=== PATIENT | male | born 1955 | race African-American/Black ===

== ENCOUNTER 2016-06-22 20:03 | Inpatient (IN) | payer MEDICAID ==
[~2016-06-22] VITALS: Ht 172.7 cm; Wt 74.8 kg
[2016-06-22 21:39] LABS: BASOPHILS % 1.1 % (0.0-2.0); CHLORIDE 100 mEq/L (98-107); EOSINOPHILS % 0.3 % (0.0-5.0); HEMATOCRIT. 40.5 % (42.0-52.0); HEMOGLOBIN. 13.8 g/dL (14.0-18.0); INDEX HEMOLYSI 1 (1-3); INDEX ICTERIC 1 (1-4); INDEX LIPEMIC 1 (1-3); LYMPHOCYTES % 27.5 % (20.0-50.0); MEAN CORPUSCULAR HEMOGLOBIN 29.5 pg (28.0-32.0); MEAN PLATELET VOLUME 7.3 fl (7.4-10.4); MONOCYTES % 7.4 % (2.0-8.0); NEUTROPHILS % 63.7 % (40.0-76.0); PLATELET 261 x1000/uL (130-400); RED BLOOD CELL COUNT 4.66 mill/uL (4.7-6.1); RED CELL DISTRIBUTION WIDTH 13.5 % (11.6-14.6); WHITE BLOOD COUNT 11.7 x1000/uL (4.5-11.0)
[2016-06-22 21:41] LABS: CALCIUM 9.4 mg/dL (8.5-10.1)
[2016-06-22 21:43] LABS: ANION GAP 16; CARBON DIOXIDE 26 mEq/L (21-32); ETHANOL BLOOD < 10 mg/dL; UREA NITROGEN BLOOD 59 mg/dL (7-21)
[2016-06-22 21:45] LABS: ACETAMINOPHEN < 2 ug/mL (10-30); ALANINE AMINOTRANSFERASE 42 IU/L (13-61); eGFR 28 mL/min (>60)
[2016-06-22] MEDS ORDERED: SODIUM CHLORIDE 0.9% 1,000 ML IV ONE (22:15)
[2016-06-22 22:52] LABS: CLARITY URINE CLEAR (CLEAR); COLOR URINE YELLOW (YELLOW); GLUCOSE URINE TRACE (NEGATIVE); KETONES URINE 1+ (NEGATIVE); LEUKOCYTE ESTERASE URINE NEGATIVE (NEGATIVE); NITRITE URINE NEGATIVE (NEGATIVE); OCCULT BLOOD URINE 3+ (NEGATIVE); PROTEIN URINE 1+ (NEGATIVE); SPECIFIC GRAVITY URINE 1.025 (1.005-1.030)
[2016-06-22 23:04] LABS: *AMPHETAMINES SCREEN URINE PRESUMTIVE POSITIVE (NEGATIVE); *BARBITURATES SCREEN URINE NEGATIVE (NEGATIVE); *BENZODIAZEPINES SCREEN URINE NEGATIVE (NEGATIVE); *COCAINE SCREEN URINE NEGATIVE (NEGATIVE); CANNABINOID URINE SCREEN NEGATIVE (NEGATIVE); ECSTASY MDMA SCREEN URINE CONF.TEST INDICATED (NEGATIVE); METHADONE URINE SCREEN NEGATIVE (NEGATIVE); OPIATES URINE SCREEN NEGATIVE (NEGATIVE); PHENCYCLIDINE URINE SCREEN NEGATIVE (NEGATIVE)
[2016-06-22 23:15] LABS: WBC URINE 0-2 /hpf (0-2)
[2016-06-22 23:16] LABS: BACTERIA URINE 3+; RBC URINE NONE SEEN /hpf (0-2); SQUAMOUS EPITHELIAL CELL URINE NONE SEEN /lpf (RARE/1+)
[2016-06-23 09:15] VITALS: BP 127/79
[2016-06-23 09:30] VITALS: BP 128/93
[2016-06-23] MEDS ORDERED: SODIUM CHLORIDE 0.9% 1,000 ML IV SCH (10:50)
[2016-06-23] MEDS ORDERED: DOCUSATE SODIUM 100MG CAPSULE PO PRN (11:00)
[2016-06-23] MEDS ORDERED: LORAZEPAM 2MG/ML CPJ IV PRN (11:00)
[2016-06-23] MEDS ORDERED: ACETAMINOPHEN 325MG TABLET PO PRN ×2 (11:00)
[2016-06-23] MEDS ORDERED: MAGNESIUM/ALUMINUM HYDROXIDE/SIMETHICONE 30ML UDC PO PRN ×2 (11:00)
[2016-06-23] MEDS ORDERED: ENOXAPARIN 40MG/0.4ML SYR SUBCUT SCH (11:00)
[2016-06-23] MEDS ORDERED: CLONIDINE 0.1MG TABLET PO PRN ×2 (11:00)
[2016-06-23] MEDS ORDERED: MORPHINE SULFATE 2 MG/ML CPJ (NOT FOR IM USE) IV PRN (11:00)
[2016-06-23] MEDS ORDERED: ONDANSETRON HCL 4MG/2ML VIAL IV PRN ×2 (11:00)
[2016-06-23 11:40] VITALS: BP 113/74
[2016-06-23] MEDS: SODIUM CHLORIDE 0.9% 1,000 ML IV SCH ×2 (11:58→22:37)
[2016-06-23] MEDS: ENOXAPARIN 30MG/0.3ML SYR SUBCUT SCH (11:59)
[2016-06-23] MEDS ORDERED: TRAZ-132 PO (12:09)
[2016-06-23] MEDS: HYDROMORPHONE HCL/PF 2MG/ML CPJ IV PRN ×3 (12:19→22:42)
[2016-06-23] MEDS ORDERED: IPRATROPIUM/ALBUTEROL 0.5-3(2.5)MG/3ML NEB HHN PRN (12:30)
[2016-06-23] MEDS ORDERED: PNEUMOCOCCAL 23-VAL P-SAC VAC 0.5 ML IM ONE (12:45)
[2016-06-23] MEDS ORDERED: INFLUENZA VIRUS VACCINE 0.5ML SYR IM ONE (12:45)
[2016-06-23 13:42] LABS: PHOSPHORUS 2.8 mg/dL (2.5-4.9)
[2016-06-23 15:55] LABS: CREATINE KINASE MB FRACTION 11.2 ng/mL (0.5-3.6); TROPONIN I 0.03 ng/mL (0.00-0.04)
[2016-06-23 16:00] VITALS: BP 115/76
[2016-06-23 23:32] LABS: CREATINE KINASE MB FRACTION 7.6 ng/mL (0.5-3.6); TROPONIN I 0.03 ng/mL (0.00-0.04)
[2016-06-24] MEDS: SODIUM CHLORIDE 0.9% 1,000 ML IV SCH ×2 (04:39→22:51)
[2016-06-24] MEDS: LORAZEPAM 2MG/ML CPJ IV PRN ×2 (04:39→10:58)
[2016-06-24 05:47] LABS: BASOPHILS % 0.9 % (0.0-2.0); EOSINOPHILS % 0.5 % (0.0-5.0); HEMATOCRIT. 35.6 % (42.0-52.0); HEMOGLOBIN. 12.2 g/dL (14.0-18.0); LYMPHOCYTES % 47.6 % (20.0-50.0); MEAN CORPUSCULAR HEMOGLOBIN 29.4 pg (28.0-32.0); MEAN CORPUSCULAR HGB CONC 34.3 g/dL (31.0-37.0); MEAN CORPUSCULAR VOLUME 85.9 fL (80.0-94.0); MEAN PLATELET VOLUME 7.5 fl (7.4-10.4); MONOCYTES % 8.4 % (2.0-8.0); NEUTROPHILS % 42.6 % (40.0-76.0); PLATELET 214 x1000/uL (130-400); RED BLOOD CELL COUNT 4.15 mill/uL (4.7-6.1); RED CELL DISTRIBUTION WIDTH 13.6 % (11.6-14.6); WHITE BLOOD COUNT 5.4 x1000/uL (4.5-11.0)
[2016-06-24 06:07] LABS: ANION GAP 11; CARBON DIOXIDE 26 mEq/L (21-32); CHLORIDE 105 mEq/L (98-107); INDEX HEMOLYSI 1 (1-3); INDEX ICTERIC 1 (1-4); INDEX LIPEMIC 1 (1-3); MAGNESIUM 2.4 mg/dL (1.8-2.4); PHOSPHORUS 2.2 mg/dL (2.5-4.9); UREA NITROGEN BLOOD 41 mg/dL (7-21); eGFR > 60 mL/min (>60)
[2016-06-24 06:15] LABS: CALCIUM 8.1 mg/dL (8.5-10.1)
[2016-06-24 08:00] VITALS: BP 98/64
[2016-06-24] MEDS: ENOXAPARIN 30MG/0.3ML SYR SUBCUT SCH (09:26)
[2016-06-24] MEDS ORDERED: SERT25TA74 PO (10:16)
[2016-06-24] MEDS ORDERED: EMTR1TAB13 PO (10:16)
[2016-06-24] MEDS ORDERED: THIA100T75 PO (10:16)
[2016-06-24] MEDS ORDERED: ASPI-1035 PO (10:16)
[2016-06-24] MEDS ORDERED: ATOR20TA65 PO (10:16)
[2016-06-24] MEDS ORDERED: GABA-529 PO (10:16)
[2016-06-24] MEDS ORDERED: LIOR10 PO (10:16)
[2016-06-24] MEDS ORDERED: TAMS-11 PO (10:16)
[2016-06-24] MEDS ORDERED: DUTA0.5C2 PO (10:16)
[2016-06-24] MEDS ORDERED: NITR0.4T3 SL (10:16)
[2016-06-24 12:00] VITALS: BP 110/68
[2016-06-24 13:07] VITALS: BP 110/68
[2016-06-24] MEDS: HYDROMORPHONE HCL/PF 2MG/ML CPJ IV PRN ×2 (13:57→20:08)
[2016-06-24] MEDS ORDERED: GABAPENTIN 100MG CAPSULE PO PRN (15:15)
[2016-06-24] MEDS ORDERED: TRAZODONE HCL 100MG TABLET PO PRN (15:15)
[2016-06-24] MEDS ORDERED: NITROGLYCERIN 0.4MG TABLET SL SL PRN (15:19)
[2016-06-24 16:00] VITALS: BP 102/67
[2016-06-24 20:00] VITALS: BP 103/62
[2016-06-24] MEDS ORDERED: ATORVASTATIN CALCIUM 20MG TABLET PO SCH (21:00)
[2016-06-25] VITALS: BP 97/57
[2016-06-25 04:00] VITALS: BP 107/66
[2016-06-25 08:03] VITALS: BP 111/71
[2016-06-25] MEDS ORDERED: ENOXAPARIN 40MG/0.4ML SYR SUBCUT SCH (09:00)
[2016-06-25] MEDS ORDERED: TAMSULOSIN HCL 0.4MG SR CAPSULE PO SCH (09:00)
[2016-06-25] MEDS ORDERED: DUTASTERIDE 0.5MG CAPSULE PO SCH (09:00)
[2016-06-25] MEDS ORDERED: ASPIRIN 81MG EC TABLET PO SCH (09:00)
[2016-06-25] MEDS ORDERED: SERTRALINE HCL 25MG TABLET PO SCH (09:00)
[2016-06-25] MEDS ORDERED: THIAMINE HCL 100MG TABLET PO SCH (09:00)
[2016-06-25] MEDS: HYDROMORPHONE HCL/PF 2MG/ML CPJ IV PRN (09:41)
[2016-06-25 12:00] VITALS: BP 108/69
[2016-06-25 13:41] VITALS: BP 108/69
[2016-06-25] MEDS ORDERED: PNEUMOCOCCAL 23-VAL P-SAC VAC 0.5 ML IM ONE (14:45)
[2016-06-25] MEDS ORDERED: INFLUENZA VIRUS VACCINE 0.5ML SYR IM ONE (14:45)
[2016-06-25] MEDS ORDERED: BACLOFEN 10MG TABLET PO PRN (15:19)
== END 2016-06-25 15:40 | disposition home or self-care (01) | DRG 140 ==
LOC: ER 20:20 → 6WST 06-23 01:49
PROVIDERS: ADMIT Internal Medicine Nephrology; ATTEND Internal Medicine Nephrology
DX: J44.1 Chronic obstructive pulmonary disease with (acute) exacerbation (principal); E11.22 Type 2 diabetes mellitus with diabetic chronic kidney disease; N17.9 Acute kidney failure, unspecified; E11.65 Type 2 diabetes mellitus with hyperglycemia; N18.4 Chronic kidney disease, stage 4 (severe); D72.829 Elevated white blood cell count, unspecified; F20.9 Schizophrenia, unspecified; F43.10 Post-traumatic stress disorder, unspecified; I25.10 Atherosclerotic heart disease of native coronary artery without angina pectoris; E86.9 Volume depletion, unspecified; F15.10 Other stimulant abuse, uncomplicated; K40.90 Unilateral inguinal hernia, without obstruction or gangrene, not specified as recurrent; Z91.19 Patient's noncompliance with other medical treatment and regimen; Z88.2 Allergy status to sulfonamides; Z86.19 Personal history of other infectious and parasitic diseases; Z87.891 Personal history of nicotine dependence
CPT/HCPCS: 36415; 71010; 71250; 74176; 76770; 80048; 80053; 80302; 80305; 80329; 81001; 82553; 83735; 83970; 84100; 84153; 84484; 85025; 90686; 90732; 93005; 96360; 99285; G0482; J1170; J1650; J2060; J2405; J7030